=== PATIENT | female | born 1995 | race Caucasian/White ===

== ENCOUNTER 2022-02-17 16:31 | Inpatient (IN) | payer OTHER ==
--- NOTE | 2022-02-17 17:47 | ED ---
General Adult HPI - General Chief complaint: Psychiatric Symptoms Stated complaint: Medication complications Time Seen by Provider: 02/17/22 17:16 Source: patient, family Mode of arrival: ambulatory Limitations: no limitations - History of Present Illness Initial comments: Dictation was produced using [employer] dictation software. please excuse any gr ammatical, word or spelling errors. Chief Complaint: 26-year-old female presents with paranoia and auditory hallucinations History of Present Illness: 26-year-old female she presents with her father. Patient recently had medication changes yesterday. She was switched from Risperdal to Zyprexa. She is also placed on a letter goes by her psychiatrist. Patient's history of recent psychotic episode requiring psychiatric care in the past. Today patient had increasing auditory hallucinations. She states that the voices are telling her negative things. Patient also feeling dizzy. This also having some suicidal thoughts. She believes that this is from the medication changes. Denies any pain. No nausea vomiting. The ROS documented in this emergency department record has been reviewed and confirmed by me. Those systems with pertinent positive or negative responses have been documented in the HPI. All other systems are other negative and/or noncontributory. PHYSICAL EXAM: General Impression: Alert and oriented x3, not in acute distress HEENT: Normocephalic atraumatic, extra-ocular movements intact, pupils equal and reactive to light bilaterally, mucous membranes moist. Cardiovascular: Heart regular rate and rhythm Chest: Able to complete full sentences, no retractions, no tachypnea Abdomen: abdomen soft, non-tender, non-distended, no organomegaly Musculoskeletal: Pulses present and equal in all extremities, no peripheral edema Motor: no focal deficits noted Neurological: CN II-XII grossly intact, no focal motor or sensory deficits noted Skin: Intact with no visualized rashes Psych: Tearful ED course: 26-year-old female presents emergency department for psychotic symptoms. She also has accompanying dizziness. All signs upon arrival are within acceptable limits. Patient no acute distress. Patient reports a history of hyponatremia, hypokalemia and hypomagnesemia. She does take potassium and magnesium supplementation. Patient also has Soma 122. She states that whenever she eats nervous which is very often she drinks a lot of water. Patient also has a component of psychogenic polydipsia which may be driving her hyponatremia. The last she is started on IV fluids. Patient be admitted for electrolytes arrangement. Psychiatry was consulted for management of psychotic symptoms. EKG interpretation: Ventricular rate 70, sinus rhythm, DE interval 137, care is 87, QTC 422. No DE prolongation, no QTC prolongation, no ST or T-wave changes noted. Overall, this EKG is unremarkable - Related Data Home Medications Medication Instructions Recorded Confirmed Nortrel 7-7-7 1 tab PO DAILY 01/10/22 02/17/22 diphenhydrAMINE [Benadryl] 25 mg PO DAILY PRN 01/10/22 02/17/22 Cholecalciferol [Vitamin D3 (25 25 mcg PO DAILY 02/17/22 02/17/22 Mcg = 1000 Iu)] LORazepam [Ativan] 0.5 mg PO BID PRN 02/17/22 02/17/22 Magnesium Citrate 250 mg PO HS 02/17/22 02/17/22 Magnesium Ox 125mg 125 mg PO HS 02/17/22 02/17/22 OLANZapine [ZyPREXA] See Taper PO HS 02/17/22 02/17/22 Pyridoxine [Vitamin B-6] 50 mg PO DAILY 02/17/22 02/17/22 Qunol 1 tab PO HS 02/17/22 02/17/22 risperiDONE [RisperDAL] 1 mg PO DAILY 02/17/22 02/17/22 Previous Rx's Medication Instructions Recorded Escitalopram [Lexapro] 20 mg PO DAILY 30 Days tab 01/13/22 Allergies Allergy/AdvReac Type Severity Reaction Status Date / Time No Known Allergies Allergy Verified 02/17/22 18:26 Review of Systems ROS Statement: Those systems with pertinent positive or pertinent negative responses have been documented in the HPI. ROS Other: All systems not noted in ROS Statement are negative. Past Medical History Past Medical History: No Reported History History of Any Multi-Drug Resistant Organisms: None Reported Past Surgical History: No Surgical Hx Reported Past Psychological History: Anxiety, Depression, Schizophrenia Smoking Status: Never smoker Past Alcohol Use History: None Reported Past Drug Use History: None Reported General Exam Limitations: no limitations Course Vital Signs 02/17/22 16:46 Temperature 97.9 F Pulse Rate 83 Respiratory 16 Rate Blood Pressure 138/91 O2 Sat by Pulse 99 Oximetry Medical Decision Making - Lab Data Result diagrams: 02/17/22 18:03 02/17/22 18:03 Lab Results 02/17/22 02/17/22 02/17/22 Range/Units 17:53 17:53 18:03 WBC (3.8-10.6) k/uL RBC (3.80-5.40) m/uL Hgb (11.4-16.0) gm/dL Hct (34.0-46.0) % MCV (80.0-100.0) fL MCH (25.0-35.0) pg MCHC (31.0-37.0) g/dL RDW (11.5-15.5) % Plt Count (150-450) k/uL MPV Neutrophils % % Lymphocytes % % Monocytes % % Eosinophils % % Basophils % % Neutrophils # (1.3-7.7) k/uL Lymphocytes # (1.0-4.8) k/uL Monocytes # (0-1.0) k/uL Eosinophils # (0-0.7) k/uL Basophils # (0-0.2) k/uL Sodium 122 L (137-145) mmol/L Potassium 3.1 L (3.5-5.1) mmol/L Chloride 89 L (98-107) mmol/L Carbon Dioxide 26 (22-30) mmol/L Anion Gap 7 mmol/L BUN 13 (7-17) mg/dL Creatinine 0.68 (0.52-1.04) mg/dL Est GFR (CKD-EPI)AfAm >90 (>60 ml/min/1.73 sqM) Est GFR (CKD-EPI)NonAf >90 (>60 ml/min/1.73 sqM) Glucose 91 (74-99) mg/dL Calcium 8.4 (8.4-10.2) mg/dL Magnesium 1.3 L (1.6-2.3) mg/dL Urine HCG, Qual Not Detected (Not Detectd) Urine Opiates Screen Not Detected (NotDetected) Ur Oxycodone Screen Not Detected (NotDetected) Urine Methadone Screen Not Detected (NotDetected) Ur Propoxyphene Screen Not Detected (NotDetected) Ur Barbiturates Screen Not Detected (NotDetected) U Tricyclic Antidepress Not Detected (NotDetected) Ur Phencyclidine Scrn Not Detected (NotDetected) Ur Amphetamines Screen Not Detected (NotDetected) U Methamphetamines Scrn Not Detected (NotDetected) U Benzodiazepines Scrn Detected H (NotDetected) Urine Cocaine Screen Not Detected (NotDetected) U Marijuana (THC) Screen Not Detected (NotDetected) 02/17/22 Range/Units 18:03 WBC 7.5 (3.8-10.6) k/uL RBC 4.08 (3.80-5.40) m/uL Hgb 12.9 (11.4-16.0) gm/dL Hct 38.0 (34.0-46.0) % MCV 93.1 D (80.0-100.0) fL MCH 31.6 (25.0-35.0) pg MCHC 34.0 (31.0-37.0) g/dL RDW 12.6 (11.5-15.5) % Plt Count 170 (150-450) k/uL MPV 7.3 Neutrophils % 63 % Lymphocytes % 28 % Monocytes % 7 % Eosinophils % 0 % Basophils % 0 % Neutrophils # 4.7 (1.3-7.7) k/uL Lymphocytes # 2.1 (1.0-4.8) k/uL Monocytes # 0.6 (0-1.0) k/uL Eosinophils # 0.0 (0-0.7) k/uL Basophils # 0.0 (0-0.2) k/uL Sodium (137-145) mmol/L Potassium (3.5-5.1) mmol/L Chloride (98-107) mmol/L Carbon Dioxide (22-30) mmol/L Anion Gap mmol/L BUN (7-17) mg/dL Creatinine (0.52-1.04) mg/dL Est GFR (CKD-EPI)AfAm (>60 ml/min/1.73 sqM) Est GFR (CKD-EPI)NonAf (>60 ml/min/1.73 sqM) Glucose (74-99) mg/dL Calcium (8.4-10.2) mg/dL Magnesium (1.6-2.3) mg/dL Urine HCG, Qual (Not Detectd) Urine Opiates Screen (NotDetected) Ur Oxycodone Screen (NotDetected) Urine Methadone Screen (NotDetected) Ur Propoxyphene Screen (NotDetected) Ur Barbiturates Screen (NotDetected) U Tricyclic Antidepress (NotDetected) Ur Phencyclidine Scrn (NotDetected) Ur Amphetamines Screen (NotDetected) U Methamphetamines Scrn (NotDetected) U Benzodiazepines Scrn (NotDetected) Urine Cocaine Screen (NotDetected) U Marijuana (THC) Screen (NotDetected) Disposition Clinical Impression: Hyponatremia, Hypomagnesemia Disposition: ADMITTED IP TO THIS [facility] Condition: Serious Referrals: Ruben George MD [Primary Care Provider] - 1-2 days
[2022-02-17 18:16] LABS: Basophils % (A) 0 %; Eosinophils % (A) 0 %; HGB 12.9 gm/dL (11.4-16.0); Lymphocytes # (A) 2.1 k/uL (1.0-4.8); Lymphocytes % (A) 28 %; MCH 31.6 pg (25.0-35.0); Mean Platelet Volume 7.3; Monocytes # (A) 0.6 k/uL (0-1.0); Monocytes % (A) 7 %; Neutrophils # (A) 4.7 k/uL (1.3-7.7); Neutrophils % (A) 63 %; Platelet Count 170 k/uL (150-450); RBC 4.08 m/uL (3.80-5.40); RDW 12.6 % (11.5-15.5); WBC 7.5 k/uL (3.8-10.6)
[2022-02-17 18:28] LABS: MCV 93.1 fL (80.0-100.0)
[2022-02-17 18:46] LABS: African American GFR (CKD) >90 (>60 ml/min/1.73 sqM); Anion Gap 7 mmol/L; Blood Urea Nitrogen 13 mg/dL (7-17); Calcium 8.4 mg/dL (8.4-10.2); Carbon Dioxide 26 mmol/L (22-30); Chloride 89 mmol/L (98-107); Glucose 91 mg/dL (74-99); Magnesium 1.3 mg/dL (1.6-2.3); Non-African American GFR(CKD) >90 (>60 ml/min/1.73 sqM); Potassium 3.1 mmol/L (3.5-5.1); Sodium 122 mmol/L (137-145)
[2022-02-17 19:17] LABS: Benzodiazepines Screen,Urine Detected (NotDetected)
[2022-02-17 19:18] LABS: Amphetamine Screen,Urine Not Detected (NotDetected); Barbiturate Screen,Urine Not Detected (NotDetected); Cocaine Screen,Urine Not Detected (NotDetected); Methadone Screen, Urine Not Detected (NotDetected); Opiate Screen,Urine Not Detected (NotDetected); Oxycodone Screen, Urine Not Detected (NotDetected); Phencyclidine Screen,Urine Not Detected (NotDetected); Tricyclic Antidepressant,Urine Not Detected (NotDetected); Urn Cannabinoid Scrn Not Detected (NotDetected)
[2022-02-17] MEDS ORDERED: SODIUM CHLORIDE 0.9% 1,000 ML IV STA (19:28)
[2022-02-17] MEDS ORDERED: POTASSIUM CHLORIDE ER 20 MEQ TAB.ER PO STA (19:28)
[2022-02-17] MEDS ORDERED: NALOXONE 0.4 MG/ML 1 ML VIAL IV PRN (19:31)
[2022-02-17] MEDS ORDERED: SODIUM CHLORIDE 0.9% 1,000 ML IV SCH ×2 (19:45→20:30)
[2022-02-17] MEDS: MAGNESIUM SULFATE-D5W PMX 1 GM in DEXTROSE/WATER 1 100ML.BAG IVPB SCH ×2 (19:51→20:40)
[2022-02-18] MEDS ORDERED: OLANZapine 5 MG TAB PO STA (00:47)
[2022-02-18] MEDS: MELATONIN 5 MG TABLET PO SCH ×2 (00:56→19:58)
[2022-02-18 01:23] LABS: African American GFR (CKD) >90 (>60 ml/min/1.73 sqM); Anion Gap 7 mmol/L; Blood Urea Nitrogen 11 mg/dL (7-17); Calcium 8.5 mg/dL (8.4-10.2); Carbon Dioxide 25 mmol/L (22-30); Chloride 106 mmol/L (98-107); Glucose 79 mg/dL (74-99); Non-African American GFR(CKD) >90 (>60 ml/min/1.73 sqM); Potassium 3.9 mmol/L (3.5-5.1); Sodium 138 mmol/L (137-145)
--- NOTE | 2022-02-18 02:14 | HP ---
HISTORY AND PHYSICAL This 26-year-old female came to the emergency room with shaking, jerking motions worsening over today with worsening hearing and auditory hallucinations and some altered mental status. She was found to have severe low potassium, magnesium and sodium. She drinks large amounts of water all day long and she is on treatment with psychiatric medications for psychosis. When she left the hospital out of [facility] last time she was doing well with hearing voices. Since that time her medicine has been gradually increased and it has not worked. 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 She was discharged from [facility] last time and she to the medicines not working. Since she has been in the ER we have replaced potassium and magnesium and she feels much better, hearing less voices, as the potassium and magnesium have been fixed. Maybe she has been doing this since her last discharge from [facility]. Drinking large amounts of water, and that is why the medicine is not working. She has improved with her auditory hallucinations just since she has been in the ER with potassium and magnesium being replaced. Wait for psychiatric recommendations. Fluid restriction to 1000 to 1200 mL a day at and wait for psychiatric recommendations. Dr. Shetty also saw her home medications. She has been on Risperdal, which was just decreased from 2 mg twice a day to 1 mg daily. Zyprexa was just ordered 5 mg a day by Outpatient Psychiatry. Family says that is causing her voices to be much worse. She apparently also takes Ativan 0.5 b.i.d. p.r.n., Lexapro 20 daily. PAST MEDICAL HISTORY: See admission into psychiatric [facility] about a month ago. She sees outpatient psychiatrist at [facility]. SOCIAL HISTORY: No alcohol or drugs or full vaping or anything. Surgery is nothing. Family history: Possibly some bipolar in her family. Fourteen-point review of systems otherwise negative, as mentioned above. She is doing much better with her auditory hallucinations, her jerking and her confusion; all improved since she has been in the emergency room and electrolytes have been replaced. Labs were reviewed. Drug screen reviewed. Temperature 97.9, pulse 83, respiratory rate 16, blood pressure 138/91, 99% on room air. Cardiovascular S1, S2. Lungs clear. Psych: She is giving appropriate answers. Alert and oriented x3. Neurologic: Minimal tremor. GI: Soft. ASSESSMENT: 1. Suicidal ideation was not reported to me. ER doctor said she was. The nurse in the ER said she is not. Her dad is staying with her overnight in the room until Psych sees her. She may need another stay in the [facility] for adjustment of medicines. 2. 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 Has a lot to do with her hallucinations being bad and worsening at home, not responding to medicine. She is greatly improved with these same symptoms as potassium and magnesium have been replaced in the ER. 3. Patient demonstrated water at home. She probably be okay with less psychiatric medicine, as long as she has fluid restriction and a healthy diet. Wait for psychiatric recommendations from Dr. Shetty. IKER / BRAYAN: [id number] /
[2022-02-18 04:16] LABS: Basophils % (A) 1 %; Eosinophils # (A) 0.1 k/uL (0-0.7); Eosinophils % (A) 1 %; HCT 38.7 % (34.0-46.0); HGB 12.3 gm/dL (11.4-16.0); Lymphocytes # (A) 2.6 k/uL (1.0-4.8); Lymphocytes % (A) 38 %; MCH 30.3 pg (25.0-35.0); MCHC 31.9 g/dL (31.0-37.0); Mean Platelet Volume 7.4; Monocytes # (A) 0.6 k/uL (0-1.0); Monocytes % (A) 9 %; Neutrophils # (A) 3.3 k/uL (1.3-7.7); Neutrophils % (A) 49 %; Platelet Count 190 k/uL (150-450); RBC 4.07 m/uL (3.80-5.40); RDW 12.3 % (11.5-15.5); WBC 6.7 k/uL (3.8-10.6)
[2022-02-18 04:34] LABS: ALT 20 U/L (4-34); AST 36 U/L (14-36); African American GFR (CKD) >90 (>60 ml/min/1.73 sqM); Albumin 4.2 g/dL (3.5-5.0); Alkaline Phosphatase 23 U/L (38-126); Anion Gap 6 mmol/L; Blood Urea Nitrogen 11 mg/dL (7-17); Calcium 8.8 mg/dL (8.4-10.2); Carbon Dioxide 26 mmol/L (22-30); Chloride 108 mmol/L (98-107); Glucose 88 mg/dL (74-99); Non-African American GFR(CKD) >90 (>60 ml/min/1.73 sqM); Potassium 4.3 mmol/L (3.5-5.1); Sodium 140 mmol/L (137-145); Total Bilirubin 0.3 mg/dL (0.2-1.3); Total Protein 6.8 g/dL (6.3-8.2)
[2022-02-18] MEDS: DEXTROSE 5% IN WATER 1,000 ML IV SCH ×2 (08:07→13:59)
[2022-02-18] MEDS ORDERED: diphenhydrAMINE 25 MG CAP PO PRN (09:09)
[2022-02-18] MEDS ORDERED: risperiDONE 1 MG TAB PO SCH ×2 (09:15→21:00)
[2022-02-18] MEDS: ESCITALOPRAM 20 MG TAB PO SCH (09:35)
[2022-02-18] MEDS: CHOLECALCIFEROL 25 MCG (1000 IU) TABLET PO SCH (09:35)
[2022-02-18] MEDS: LORazepam 0.5 MG TAB PO PRN ×3 (09:35→20:01)
[2022-02-18] MEDS: PYRIDOXINE 50 MG TAB PO SCH (10:03)
--- NOTE | 2022-02-18 11:00 | P.NPCON ---
History of Present Illness - Reason for Consult hyponatremia - History of Present Illness Reason for consultation: Hyponatremia History of present illness: Patient is a 26-year-old female seen in consultation for hyponatremia. Patient presented to the hospital due to concern for psychotic flare. Patient is not sure why she is here but father present at bedside provides the history. According to the father patient was maintained on Risperdal but was not tolerating the drug well. She has been following with psychiatry and was subsequently started on Zyprexa and Risperdal was gradually being decreased. Patient was more confused and hallucinating and was brought to the hospital. The father states patient has been drinking excessive amount of fluids. He states she's been drinking gallons of fluids daily. Oral intake has been fair. No vomiting or diarrhea. No chest pain or shortness of breath. No history of cancer. Patient's sodium level was 122 1 admission and she received a 1 L bolus of normal saline. She was then started on maintenance normal saline but the fluids were discontinued last night as his sodium normalized. I was not notified of these results. This morning her sodium was 140 and I started her on D5W at 150 mL an hour which she's currently receiving. Repeat sodium level is pending. Vital signs are stable. General: Awake and alert. No acute distress. HEENT: Head exam is unremarkable. LUNGS: Breath sounds decreased. HEART: Rate and Rhythm are regular. ABDOMEN: Soft, no distention. EXTREMITITES: No edema. Past Medical History Past Medical History: No Reported History History of Any Multi-Drug Resistant Organisms: None Reported Past Surgical History: No Surgical Hx Reported Past Psychological History: Anxiety, Depression Smoking Status: Unknown if ever smoked Past Alcohol Use History: None Reported Past Drug Use History: None Reported Medications and Allergies Home Medications Medication Instructions Recorded Confirmed Type Nortrel 7-7-7 1 tab PO DAILY 01/10/22 02/17/22 History diphenhydrAMINE [Benadryl] 25 mg PO DAILY PRN 01/10/22 02/17/22 History Escitalopram [Lexapro] 20 mg PO DAILY 30 Days tab 01/13/22 02/17/22 Rx Cholecalciferol [Vitamin D3 (25 25 mcg PO DAILY 02/17/22 02/17/22 History Mcg = 1000 Iu)] LORazepam [Ativan] 0.5 mg PO BID PRN 02/17/22 02/17/22 History Magnesium Citrate 250 mg PO HS 02/17/22 02/17/22 History Magnesium Ox 125mg 125 mg PO HS 02/17/22 02/17/22 History OLANZapine [ZyPREXA] See Taper PO HS 02/17/22 02/17/22 History Pyridoxine [Vitamin B-6] 50 mg PO DAILY 02/17/22 02/17/22 History Qunol 1 tab PO HS 02/17/22 02/17/22 History risperiDONE [RisperDAL] 1 mg PO DAILY 02/17/22 02/17/22 History Allergies Allergy/AdvReac Type Severity Reaction Status Date / Time No Known Allergies Allergy Verified 02/17/22 18:26 Physical Exam Vitals: Vital Signs Temp Pulse Pulse Resp BP BP Pulse Ox 02/18/22 10:38 97.6 F 66 14 123/74 100 02/18/22 10:26 77 18 113/75 100 02/18/22 08:02 67 18 98/64 99 02/18/22 00:05 80 16 111/70 100 02/17/22 16:46 97.9 F 83 16 138/91 99 Intake and Output 02/17/22 02/18/22 02/18/22 22:59 06:59 14:59 Other: Weight 61.689 kg Results - Lab Results Most recent lab results Calcium 8.8 mg/dL (8.4-10.2) 02/18/22 03:45 Magnesium 1.3 mg/dL (1.6-2.3) L 02/17/22 18:03 02/18/22 03:45 02/18/22 03:45 Assessment and Plan Plan: Assessment: 1. Hyponatremia secondary to psychogenic polydipsia. Sodium level normalized with 1 L of normal saline and when fluid intake was limited. Urine osmolality noted to be low at 69. TSH normal. 2. Hypokalemia from poor intake and hypomagnesemia. Replace. Improved. 3. Hypomagnesemia from poor intake. Replaced. Plan: Maintain D5W for now. Repeat sodium level pending. I advised patient to follow regular diet and to avoid excessive fluid intake in future. If sodium level not trending down, I will give her a dose of DDAVP. Thank you for the consultation. I will continue to follow the patient with you during her hospital stay.
[2022-02-18] MEDS ORDERED: DESMOPRESSIN ACETATE 4 MCG/ML VIAL (MDV) IV STA (12:31)
--- NOTE | 2022-02-18 13:27 | P.CN ---
Psychiatric Consult - . Consult date: 02/18/22 Consult:: 02/18/22 13:26 IDENTIFYING DATA: This patient is a single, unemployed, 26-year-old female with significant history of schizophreniform disorder who presents to the hospital for increased auditory hallucinations, dizziness, and change in mentation. HISTORY OF PRESENT ILLNESS: The patient presented to the hospital on 02/17/2022, brought into the emergency department by her father for worsening psychotic s ymptoms, dizziness, and change in mentation. As per emergency Department evaluation, the patient was recently changed from Risperdal to Zyprexa for management of her psychosis. She was also found to have significant hyponatremia with a sodium of 122 on admission. She did report that she has been drinking an excessive amount of water. Psychiatry has been consulted for evaluation and management of the patient's psychotic symptoms. Upon evaluation on the hospital floor, the patient's sodium is now corrected and is now 138. Currently, the patient continues to report that she is experiencing auditory hallucinations however states that they're much more manageable and that they are decreased in severity compared to when she was first brought into this hospital as well as compared to her last admission on our psychiatric unit. She is currently denying any suicidal or homicidal ideation, intention, and/or plan. She is not reporting any visual hallucinations. She denies any paranoia or other delusions at this time. The patient expresses that she has been increasingly stressed after learning that her parents are currently in a legal burrell with their mortgage company and there is concerns that they may lose their home. Otherwise, the patient is not reporting any other significant stressors. She reports no issues regarding her sleep or appetite. She is denying any significant depressive symptoms or symptoms of bipolar disorder. The patient was last admitted onto our psychiatric unit from 01/10/22 to 01/13/22. She was discharged in a regimen of Risperdal and Lexapro. PAST MEDICAL HISTORY: Past Medical History: No Reported History History of Any Multi-Drug Resistant Organisms: None Reported Past Surgical History: No Surgical Hx Reported Past Psychological History: Anxiety, Depression Smoking Status: Unknown if ever smoked Past Alcohol Use History: None Reported Past Drug Use History: None Reported ALLERGIES: NO KNOWN DRUG ALLERGIES CHEMICAL DEPENDENCY HISTORY: Patient denies any tobacco, marijuana, or illicit drug use. She denies any recent alcohol use. FAMILY PSYCHIATRIC/SUBSTANCE USE HISTORY: No reported family psychiatric history. SOCIAL HISTORY: Patient is single, has no children, and is currently living with her mother and father. She graduated from [employer] and has a bachelor's degree. She was recently employed in until the end of this past November. MENTAL STATUS EXAM: General Appearance: Patient appears to be stated age is alert, pleasant, and cooperative. Patient appears to have fair hygiene and grooming wearing hospital gown with fair eye contact. Behavior: Patient is calmly seated upright in bed without any agitated behavior. Speech: Patient's speech is fluent and nonpressured. Mood/Affect: Patient reports their mood is "feeling better", affect is congruent and euthymic Suicidality/Homicidality: Patient denies having any suicidal or homicidal ideation intent or plan. Perceptions: Patient denies any visual hallucinations and denies any auditory hallucinations Though content/process: There is no evidence of any delusional thought content and thought process is linear and goal-directed. Memory and concentration: AOX3, grossly intact for the purposes of this session. Can spell "WORLD" backwards Judgment and insight:. Good Laboratory Results WBC 6.7 k/uL (3.8-10.6) 02/18/22 03:45 RBC 4.07 m/uL (3.80-5.40) 02/18/22 03:45 Hgb 12.3 gm/dL (11.4-16.0) 02/18/22 03:45 Hct 38.7 % (34.0-46.0) 02/18/22 03:45 MCV 95.0 fL (80.0-100.0) 02/18/22 03:45 MCH 30.3 pg (25.0-35.0) 02/18/22 03:45 MCHC 31.9 g/dL (31.0-37.0) 02/18/22 03:45 RDW 12.3 % (11.5-15.5) 02/18/22 03:45 Plt Count 190 k/uL (150-450) 02/18/22 03:45 MPV 7.4 02/18/22 03:45 Neutrophils % 49 % 02/18/22 03:45 Lymphocytes % 38 % 02/18/22 03:45 Monocytes % 9 % 02/18/22 03:45 Eosinophils % 1 % 02/18/22 03:45 Basophils % 1 % 02/18/22 03:45 Neutrophils # 3.3 k/uL (1.3-7.7) 02/18/22 03:45 Lymphocytes # 2.6 k/uL (1.0-4.8) 02/18/22 03:45 Monocytes # 0.6 k/uL (0-1.0) 02/18/22 03:45 Eosinophils # 0.1 k/uL (0-0.7) 02/18/22 03:45 Basophils # 0.0 k/uL (0-0.2) 02/18/22 03:45 Sodium 138 mmol/L (137-145) 02/18/22 10:38 Potassium 4.3 mmol/L (3.5-5.1) 02/18/22 03:45 Chloride 108 mmol/L (98-107) H 02/18/22 03:45 Carbon Dioxide 26 mmol/L (22-30) 02/18/22 03:45 Anion Gap 6 mmol/L 02/18/22 03:45 BUN 11 mg/dL (7-17) 02/18/22 03:45 Creatinine 0.65 mg/dL (0.52-1.04) 02/18/22 03:45 Est GFR (CKD-EPI)AfAm >90 (>60 ml/min/1.73 sqM) 02/18/22 03:45 Est GFR (CKD-EPI)NonAf >90 (>60 ml/min/1.73 sqM) 02/18/22 03:45 Glucose 88 mg/dL (74-99) 02/18/22 03:45 Osmolality 286 mosm/kg (280-301) 02/17/22 23:45 Calcium 8.8 mg/dL (8.4-10.2) 02/18/22 03:45 Magnesium 1.3 mg/dL (1.6-2.3) L 02/17/22 18:03 Total Bilirubin 0.3 mg/dL (0.2-1.3) 02/18/22 03:45 AST 36 U/L (14-36) 02/18/22 03:45 ALT 20 U/L (4-34) 02/18/22 03:45 Alkaline Phosphatase 23 U/L (38-126) L 02/18/22 03:45 Total Protein 6.8 g/dL (6.3-8.2) 02/18/22 03:45 Albumin 4.2 g/dL (3.5-5.0) 02/18/22 03:45 TSH 3.180 mIU/L (0.465-4.680) 02/18/22 03:45 Urine Osmolality 69 mosm/kg (50-1400) 02/17/22 17:23 Urine HCG, Qual Not Detected (Not Detectd) 02/17/22 17:53 Urine Opiates Screen Not Detected (NotDetected) 02/17/22 17:53 Ur Oxycodone Screen Not Detected (NotDetected) 02/17/22 17:53 Urine Methadone Screen Not Detected (NotDetected) 02/17/22 17:53 Ur Propoxyphene Screen Not Detected (NotDetected) 02/17/22 17:53 Ur Barbiturates Screen Not Detected (NotDetected) 02/17/22 17:53 U Tricyclic Antidepress Not Detected (NotDetected) 02/17/22 17:53 Ur Phencyclidine Scrn Not Detected (NotDetected) 02/17/22 17:53 Ur Amphetamines Screen Not Detected (NotDetected) 02/17/22 17:53 U Methamphetamines Scrn Not Detected (NotDetected) 02/17/22 17:53 U Benzodiazepines Scrn Detected (NotDetected) H 02/17/22 17:53 Urine Cocaine Screen Not Detected (NotDetected) 02/17/22 17:53 U Marijuana (THC) Screen Not Detected (NotDetected) 02/17/22 17:53 Vital Signs Temp 97.6 F 02/18/22 10:38 Pulse 66 02/18/22 10:38 Resp 14 02/18/22 10:38 BP 123/74 02/18/22 10:38 Pulse Ox 100 02/18/22 10:38 Intake & Output 02/17/22 02/18/22 02/18/22 18:59 06:59 18:59 Intake Total 150 Output Total 800 Balance -650 Weight 61.689 kg 61.689 kg Intake: IV 150 Dextrose 5% in Water 1, 150 000 ml @ 150 mls/hr IV . 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 Currently, the patient is now alert and oriented and not reporting any suicidal or homicidal ideation, intention, and/or plan. She does not present with imminent risk of harm to self or others and is not overtly psychotic. Although she continues to endorse auditory hallucinations, her symptoms appear to be well-controlled. -Patient counseled on psychogenic polydipsia. No medication management is required for this at this time. -Delirium precautions recommended with patient including - avoiding use of narcotics and USED [employer] sedatives, limit anticholinergic medications when possible, frequent re-orientation, minimize use of restraints, open window shades during the day and close them at night -Would recommend the following medication changes/additions: We'll place the patient back on Risperdal and continue the medication at 1 mg by mouth twice a day for management of psychosis. Continue to hold Zyprexa this time. Continue Lexapro 20 mg by mouth daily for depression/anxiety -Discontinue one-to-one sitter -Recommend outpatient psychiatry follow-up. Patient is currently open with [facility]. -Psychiatry will sign off at this point, please contact with any questions. 02/18/22 13:26
[2022-02-18] MEDS ORDERED: LORazepam 0.5 MG TAB PO SCH (16:00)
[2022-02-18] MEDS ORDERED: OLANZapine 5 MG TAB PO SCH (18:00)
--- NOTE | 2022-02-18 18:31 | P.PN ---
Progress Note - Text Progress Note Date: 02/18/22 Hospital course: I'm rounding for Dr. Ruben George. Patient is a 26-year-old female . Patient presented to the hospital due to concern for psychotic flare. Patient is not sure why she is here but father present at bedside provides the history. According to the father patient was maintained on Risperdal but was not tolerating the drug well. She has been following with psychiatry and was subsequently started on Zyprexa and Risperdal was gradually being decreased. Patient was more confused and hallucinating and was brought to the hospital. The father states patient has been drinking excessive amount of fluids. He states she's been drinking gallons of fluids daily. Oral intake has been fair. No vomiting or diarrhea. No chest pain or shortness of breath. No history of cancer. Patient's sodium level was 122 1 admission and she received a 1 L bolus of normal saline. She was then started on maintenance normal saline but the fluids were discontinued last night as his sodium normalized. I was not notified of these results. February 18: Patient sitting up in bed. Comfortable. Did tolerate her breakfast. Did walk to the bathroom. The patient walk in the hallway. Sodium is better. On D5W. Per nephrology. Active Medications Cholecalciferol (Cholecalciferol 25 Mcg (1000 Iu) Tablet) 25 mcg PO DAILY [facility] Last Admin: 02/18/22 09:35 Dose: 25 mcg Documented by: Diphenhydramine HCl (Diphenhydramine 25 Mg Cap) 25 mg PO DAILY PRN PRN Reason: requested Escitalopram Oxalate (Escitalopram 20 Mg Tab) 20 mg PO DAILY [facility] Last Admin: 02/18/22 09:35 Dose: 20 mg Documented by: Dextrose/Water (Dextrose 5%-Water Iv Soln) 1,000 mls @ 150 mls/hr IV .Q6H40M [facility] Last Admin: 02/18/22 13:59 Dose: 80 mls/hr Documented by: Lorazepam (Lorazepam 0.5 Mg Tab) 0.5 mg PO TID PRN PRN Reason: Anxiety Melatonin (Melatonin 5 Mg Tablet) 5 mg PO HS [facility] Last Admin: 02/18/22 00:56 Dose: 5 mg Documented by: Naloxone HCl (Naloxone 0.4 Mg/Ml 1 Ml Vial) 0.2 mg IV Q2M PRN PRN Reason: Opioid Reversal Olanzapine (Olanzapine 5 Mg Tab) 5 mg PO DAILY [facility] Pyridoxine HCl (Pyridoxine 50 Mg Tab) 50 mg PO DAILY [facility] Last Admin: 02/18/22 10:03 Dose: 50 mg Documented by: Risperidone (Risperidone 1 Mg Tab) 1 mg PO DAILY [facility] On examination: VITAL SIGNS: [97.6, 66, 14, 123/74, 100% room air,] GENERAL APPEARANCE: Sitting up in bed, awake, comfortable HEENT: Normal external appearance of nose and ear. Oral cavity normal EYES: Pupils equal. Conjunctiva normal. NECK: JVD not raised. Mass not palpable. RESPIRATORY: Respiratory effort normal. Lungs clear to auscultation. CARDIOVASCULAR: First and second sounds normal. No edema. ABDOMEN: Soft. Liver and spleen not palpable. No tenderness. No mass palpable. PSYCHIATRY: Alert and oriented x3. Mood and affect normal. INVESTIGATIONS, reviewed in the clinical context: White count 6.7 hemoglobin 12.3 platelets 190 sodium 138 potassium 4.3 creatinine 0.65 Admission labs: Sodium 122 Assessment and plan: - Hyponatremia secondary to psychogenic polydipsia. Sodium improved with 1 IV normal saline and when fluid intake was limited. Urine osmolality noted to be low at 69. TSH normal. - Hypokalemia Replace - Hypomagnesemia Replaced. -Psychogenic polydipsia Patient counseled. Follow with psychiatry -Schizophrenic form disorder/major depressive disorder Risperdal to continue per psychiatry. Zyprexa held. Continue Lexapro. Sitter discontinued. Discussed with the patient and sitter this morning. Ambulate in the hallway. Psychiatry consultation noted. Getting D5W. Repeat labs in the morning. Hopefully home tomorrow.
[2022-02-19] MEDS: LORazepam 0.5 MG TAB PO PRN (05:59)
[2022-02-19] MEDS ORDERED: risperiDONE 1 MG TAB PO SCH (06:00)
[2022-02-19] MEDS: PYRIDOXINE 50 MG TAB PO SCH (09:15)
[2022-02-19] MEDS: CHOLECALCIFEROL 25 MCG (1000 IU) TABLET PO SCH (09:15)
[2022-02-19] MEDS: ESCITALOPRAM 20 MG TAB PO SCH (09:15)
[2022-02-19 09:20] VITALS: BP 90/57; RESP 18; TEMP 97.5
[2022-02-19 09:22] VITALS: PULSE 67
[2022-02-19 09:35] LABS: African American GFR (CKD) >90 (>60 ml/min/1.73 sqM); Anion Gap 8 mmol/L; Blood Urea Nitrogen 10 mg/dL (7-17); Carbon Dioxide 28 mmol/L (22-30); Chloride 104 mmol/L (98-107); Glucose 103 mg/dL (74-99); Magnesium 1.7 mg/dL (1.6-2.3); Non-African American GFR(CKD) >90 (>60 ml/min/1.73 sqM); Potassium 4.2 mmol/L (3.5-5.1); Sodium 140 mmol/L (137-145)
--- NOTE | 2022-02-19 10:32 | P.PN ---
Subjective Progress Note Date: 02/19/22 Principal diagnosis: This is a 26-year-old female seen in consultation because of hyponatremia secondary to polydipsia. She was treated with IV fluids and recovered. She is completely recovered has no symptoms eating well. Her sodium is 140 this morning Objective - Vital Signs Vital signs: Vital Signs Temp 97.5 F L 02/19/22 09:00 Pulse 67 02/19/22 09:00 Resp 18 02/19/22 09:00 BP 90/57 02/19/22 09:00 Pulse Ox 97 02/19/22 09:00 Intake & Output 02/18/22 02/19/22 02/19/22 18:59 06:59 18:59 Intake Total 1550 500 Output Total 1050 Balance 500 500 Intake: IV 550 Dextrose 5% in Water 1, 550 000 ml @ 150 mls/hr IV . Q6H40M [facility] Rx#:[id number] Oral 1000 500 Output: Urine 1050 Other: Voiding Method Toilet Toilet # Voids 2 On examination awake alert oriented comfortable cheerful HEENT exam no JVP neck is supple no facial asymmetry Lungs are clear to auscultation good air entry bilaterally Heart sounds unremarkable for any murmur rub gallop Abdomen soft nontender Extremity exam was no edema Neurologically awake alert oriented - Labs CBC & Chem 7: 02/18/22 03:45 02/19/22 08:34 Labs: Abnormal Lab Results - Last 24 Hours (Table) 02/17/22 02/18/22 02/19/22 Range/Units 17:23 20:26 08:34 Sodium 130 L (137-145) mmol/L Glucose 103 H (74-99) mg/dL Ur Random Sodium <20 L (40-220) mmol/L Assessment and Plan Assessment: Impression 1. Hyponatremia secondary to polydipsia, sodium was 122 on admission improved to 140 this morning. TSH is normal at 3.1 urine osmole to 69 urine sodium less than 20. Resolved Recommendation Patient can be discharged would recommend follow-up basic metabolic panel in about 3-4 days. I given her a prescription for the same. Patient's father was in the room
--- NOTE | 2022-02-19 13:05 | P.DS ---
Providers Date of admission: 02/17/22 19:31 Expected date of discharge: 02/19/22 Attending physician: Ruben George Consults: 02/17/22 19:32 Consult Physician Routine Consulting Provider: Jono Harkins Consult Reason/Comments: electrolyte derangement Do you want consulting provider notified?: Yes Consult Physician Routine Consulting Provider: River Arguello Consult Reason/Comments: acute psychosis Do you want consulting provider notified?: Yes Primary care physician: Ruben George Hospital Course: Hospital course: I'm rounding for Dr. Ruben George. Patient is a 26-year-old female . Patient presented to the hospital due to concern for psychotic flare. Patient is not sure why she is here but father present at bedside provides the history. According to the father patient was maintained on Risperdal but was not tolerating the drug well. She has been following with psychiatry and was subsequently started on Zyprexa and Risperdal was gradually being decreased. Patient was more confused and hallucinating and was brought to the hospital. The father states patient has been drinking excessive amount of fluids. He states she's been drinking gallons of fluids daily. Oral intake has been fair. No vomiting or diarrhea. No chest pain or shortness of breath. No history of cancer. Patient's sodium level was 122 1 admission and she received a 1 L bolus of normal saline. She was then started on maintenance normal saline but the fluids were discontinued last night as his sodium normalized. I was not notified of these results. February 18: Patient sitting up in bed. Comfortable. Did tolerate her breakfast. Did walk to the bathroom. The patient walk in the hallway. Sodium is better. On D5W. Per nephrology. February 19: Father the bedside. Patient feeling much better. Sodium corrected. Eating well. Has been up in the hallway. Discussed at length with the patient and the father the bedside lifestyle approach. Fluid intake discussed. Discharge medications per psychiatry on the current medications. Zyprexa has been cut back to 5 mg at 6 PM. Patient scheduled to follow-up with [facility]. Discussion and discharge planning more than 35 minutes On examination: VITAL SIGNS: 97.5, 67, 18, 90/57, 97% room air GENERAL APPEARANCE: awake, comfortable HEENT: Normal external appearance of nose and ear. Oral cavity normal EYES: Pupils equal. Conjunctiva normal. NECK: JVD not raised. Mass not palpable. RESPIRATORY: Respiratory effort normal. Lungs clear to auscultation. CARDIOVASCULAR: First and second sounds normal. No edema. ABDOMEN: Soft. Liver and spleen not palpable. No tenderness. No mass palpable. PSYCHIATRY: Alert and oriented x3. Mood and affect normal. INVESTIGATIONS, reviewed in the clinical context: February 19: Sodium 140 White count 6.7 hemoglobin 12.3 platelets 190 sodium 138 potassium 4.3 creatinine 0.65 Admission labs: Sodium 122 Assessment and plan: - Hyponatremia secondary to psychogenic polydipsia. Sodium improved with 1 IV normal saline and when fluid intake was limited. Urine osmolality noted to be low at 69. TSH normal. - Hypokalemia : Corrected Replace - Hypomagnesemia Replaced. -Psychogenic polydipsia Patient counseled. Follow with [facility] -Schizophrenic form disorder/major depressive disorder Risperdal 1 mg twice daily. Zyprexa 5 mg at 6 PM. Continue Lexapro. Disposition: Home with parents Plan - Discharge Summary Discharge Rx Participant: No New Discharge Prescriptions: New OLANZapine [ZyPREXA] 5 mg PO 1800 #30 tab Continue Nortrel 04-21-7 1 tab PO DAILY Escitalopram [Lexapro] 20 mg PO DAILY 30 Days tab Qunol 1 tab PO HS LORazepam [Ativan] 0.5 mg PO BID PRN PRN Reason: Anxiety Pyridoxine [Vitamin B-6] 50 mg PO DAILY Cholecalciferol [Vitamin D3 (25 Mcg = 1000 Iu)] 25 mcg PO DAILY Magnesium Ox 125mg 125 mg PO HS Changed risperiDONE [RisperDAL] 1 mg PO DAILY@0600 #0 Discontinued diphenhydrAMINE [Benadryl] 25 mg PO DAILY PRN PRN Reason: ALLERGIES Magnesium Citrate 250 mg PO HS OLANZapine [ZyPREXA] See Taper PO HS Discharge Medication List Nortrel 04-21-7 1 tab PO DAILY 01/10/22 [History] Escitalopram [Lexapro] 20 mg PO DAILY 30 Days tab 01/13/22 [Rx] Cholecalciferol [Vitamin D3 (25 Mcg = 1000 Iu)] 25 mcg PO DAILY 02/17/22 [History] LORazepam [Ativan] 0.5 mg PO BID PRN 02/17/22 [History] Magnesium Ox 125mg 125 mg PO HS 02/17/22 [History] Pyridoxine [Vitamin B-6] 50 mg PO DAILY 02/17/22 [History] Qunol 1 tab PO HS 02/17/22 [History] OLANZapine [ZyPREXA] 5 mg PO 1800 #30 tab 02/19/22 [Rx] risperiDONE [RisperDAL] 1 mg PO DAILY@0600 #0 02/19/22 [Rx] Follow up Appointment(s)/Referral(s): dr FANNY [Other] - 1 Week (Pt and father stated pt has an appointment on Monday with Dr. Felipe) Ruben George MD [Primary Care Provider] - 1-2 days (Pt will make own appointment) Patient Instructions/Handouts: Hyponatremia (GEN), Hypomagnesemia (GEN), Suicide Prevention (GEN)
== END 2022-02-19 13:18 | disposition home or self-care (01) | DRG 641 ==
LOC: EC 16:31 → 3SCARD 19:31
PROVIDERS: ADMIT Family Medicine; ATTEND Family Medicine
DX: E87.1 Hypo-osmolality and hyponatremia (principal); R45.851 Suicidal ideations; R44.0 Auditory hallucinations; E83.42 Hypomagnesemia; T43.595A Adverse effect of other antipsychotics and neuroleptics, initial encounter; F20.9 Schizophrenia, unspecified; E87.6 Hypokalemia; F32.9 Major depressive disorder, single episode, unspecified; F41.9 Anxiety disorder, unspecified; R63.1 Polydipsia; Z79.899 Other long term (current) drug therapy; Z28.310 Unvaccinated for COVID-19; Z81.8 Family history of other mental and behavioral disorders; Z71.89 Other specified counseling
CPT/HCPCS: 36415; 80048; 80053; 80306; 81025; 83735; 83930; 83935; 84295; 84300; 84443; 85025; 93005; 96361; 96365; 96366; 99285

== ENCOUNTER 2022-02-22 09:35 | Inpatient (IN) | payer OTHER ==
--- NOTE | 2022-02-22 10:25 | ED ---
General Adult HPI - General Chief complaint: Psychiatric Symptoms Stated complaint: Revisit Time Seen by Provider: 02/22/22 10:14 Source: patient, family, RN notes reviewed Mode of arrival: ambulatory Limitations: no limitations - History of Present Illness Initial comments: Patient is a pleasant 26-year-old female presenting with family with concerns f or hearing voices and suicidal thoughts. Symptoms have been present for several months. Symptoms are worse the past few days. Patient has been on Restoril. Patient started Zyprexa last night and slept well otherwise no improvement of symptoms. Patient hears voices. Patient states this is constantly becoming very frustrated. Patient is feeling paranoid. Patient does have suicidal thoughts without plan. No physical complaints. No alcohol or street drug use. - Related Data Home Medications Medication Instructions Recorded Confirmed Nortrel 7-7-7 1 tab PO AC-SUPPER 01/10/22 02/22/22 LORazepam [Ativan] 0.5 mg PO BID PRN 02/17/22 02/22/22 Cholecalciferol [Vitamin D3 (125 125 mcg PO DAILY 02/22/22 02/22/22 Mcg = 5000 Iu)] Magnesium Carb,Citrate,Oxide 300 mg PO DAILY 02/22/22 02/22/22 [Magnesium Complex] Melatonin 5 mg PO HS PRN 02/22/22 02/22/22 OLANZapine [ZyPREXA] 10 mg PO DAILY@1900 02/22/22 02/22/22 Pyridoxine HCl (Vitamin B6) 100 mg PO DAILY 02/22/22 02/22/22 [Vitamin B-6] risperiDONE [RisperDAL] See Taper PO DAILY@0600 02/22/22 02/22/22 Previous Rx's Medication Instructions Recorded Escitalopram [Lexapro] 20 mg PO DAILY 30 Days tab 01/13/22 Allergies Allergy/AdvReac Type Severity Reaction Status Date / Time No Known Allergies Allergy Verified 02/22/22 10:58 Review of Systems ROS Statement: Those systems with pertinent positive or pertinent negative responses have been documented in the HPI. ROS Other: All systems not noted in ROS Statement are negative. Constitutional: Denies: fever Eyes: Denies: eye pain ENT: Denies: ear pain Respiratory: Denies: cough Cardiovascular: Denies: chest pain Endocrine: Denies: fatigue Gastrointestinal: Denies: abdominal pain Psychiatric: Reports: auditory hallucinations, suicidal thoughts. Denies: visual hallucinations, homicidal thoughts Past Medical History Past Medical History: No Reported History History of Any Multi-Drug Resistant Organisms: None Reported Past Surgical History: No Surgical Hx Reported Past Psychological History: Anxiety, Depression Smoking Status: Never smoker Past Alcohol Use History: None Reported Past Drug Use History: None Reported General Exam Limitations: no limitations General appearance: alert, in no apparent distress Head exam: Present: atraumatic Eye exam: Present: normal appearance Neck exam: Present: normal inspection Respiratory exam: Present: normal lung sounds bilaterally Cardiovascular Exam: Present: regular rate, normal rhythm GI/Abdominal exam: Present: soft. Absent: tenderness Extremities exam: Present: normal inspection Neurological exam: Present: alert Psychiatric exam: Present: normal affect, normal mood Skin exam: Present: normal color Course Vital Signs 02/22/22 09:43 Temperature 98.0 F Pulse Rate 80 Respiratory 18 Rate Blood Pressure 105/70 O2 Sat by Pulse 95 Oximetry Medical Decision Making - Medical Decision Making Patient was seen by mental health services with plans for admission. - Lab Data Lab Results 02/22/22 Range/Units 10:33 Urine Opiates Screen Not Detected (NotDetected) Ur Oxycodone Screen Not Detected (NotDetected) Urine Methadone Screen Not Detected (NotDetected) Ur Propoxyphene Screen Not Detected (NotDetected) Ur Barbiturates Screen Not Detected (NotDetected) U Tricyclic Antidepress Not Detected (NotDetected) Ur Phencyclidine Scrn Not Detected (NotDetected) Ur Amphetamines Screen Not Detected (NotDetected) U Methamphetamines Scrn Not Detected (NotDetected) U Benzodiazepines Scrn Detected H (NotDetected) Urine Cocaine Screen Not Detected (NotDetected) U Marijuana (THC) Screen Not Detected (NotDetected) Disposition Clinical Impression: Psychosis, Major depressive disorder Disposition: TRANSFER TO PSYCH HOSP/UNIT Is patient prescribed a controlled substance at d/c from ED?: No Referrals: Ruben George MD [Primary Care Provider] - 1-2 days Time of Disposition: 12:02
[2022-02-22 11:22] LABS: Amphetamine Screen,Urine Not Detected (NotDetected); Barbiturate Screen,Urine Not Detected (NotDetected); Benzodiazepines Screen,Urine Detected (NotDetected); Cocaine Screen,Urine Not Detected (NotDetected); Methadone Screen, Urine Not Detected (NotDetected); Opiate Screen,Urine Not Detected (NotDetected); Oxycodone Screen, Urine Not Detected (NotDetected); Phencyclidine Screen,Urine Not Detected (NotDetected); Tricyclic Antidepressant,Urine Not Detected (NotDetected); Urn Cannabinoid Scrn Not Detected (NotDetected)
[2022-02-22] MEDS ORDERED: MAG HYDROX/AL HYDROX/SIMETH 30 ML CUP PO PRN (13:46)
[2022-02-22] MEDS ORDERED: MAGNESIUM HYDROXIDE 2,400 MG/10 ML CUP PO PRN (13:46)
[2022-02-22] MEDS ORDERED: HALOPERIDOL LACTATE 5 MG/ML 1 ML VIAL IM PRN (13:46)
[2022-02-22] MEDS ORDERED: ACETAMINOPHEN TAB 325 MG TAB PO PRN (13:46)
[2022-02-22] MEDS: haloperidoL 5 MG TAB PO SCH ×2 (17:23→21:28)
[2022-02-22] MEDS: LORazepam 0.5 MG TAB PO PRN (17:23)
[2022-02-22] MEDS: OLANZapine 10 MG TAB PO SCH (18:25)
--- NOTE | 2022-02-22 20:03 | CONS ---
CONSULTATION This is a 26-year-old white female who has auditory hallucinations that are unstoppable. She says she does want to live like this anymore. She has had some suicidal thoughts. She has been in and out of the hospital three times. She does not want to live like this anymore. She has failed multiple agents, including Risperdal, Zyprexa, some Haldol, some Abilify. She hears voices nonstop. She says anxiety medicines just calm the voices down, but she still hears them. She feels paranoid, big- time paranoia. She has no alcohol or street drug use. Discussed with her mom and dad. They think she has been hearing voices for a long time. She might need some high-dose antipsychotics to work, as none of these regular ones seem to be working. She has never given a full two-month trial to the medicines as they have not worked; the voices continue to be severe, to the point where she has to come back into the hospital despite, for instance, she was on Risperdal 2 mg b.i.d. with no improvement in the voices and she got worse when Psychiatry as an outpatient switched her over to Zyprexa and cut her Risperdal in half; her voices got out of control. That is why she is back. MEDICATIONS: See list. ALLERGIES: NEGATIVE. Fourteen-point review of system negative except for severe paranoia and some suicidal ideations. PHYSICAL EXAMINATION: Temperature 98, pulse 80, respiratory rate 16 to 18, blood pressure 105/70, O2 95. Cardiovascular S1-S2. Lungs clear. GI soft. Hematology negative Homans. Drug screen is positive for benzodiazepines. She does take Ativan 0.5 every 12 to 8 hours p.r.n. for anxiety. ASSESSMENT: 1. Psychosis. 2. Major depressive disorder. Appears to be resistant to multiple use of antipsychotics at this point. She may need some high-dose medications or possibly transfer down to [facility] for long-term inpatient care until she stabilizes with her auditory voices. Every time she has been sent home from the hospital she has had voices, but she never told anybody they were still there. MMODL / IJN: [id number] /
[2022-02-23] MEDS ORDERED: risperiDONE 0.5 MG TAB PO SCH (06:00)
[2022-02-23] MEDS: LORazepam 0.5 MG TAB PO PRN (07:05)
[2022-02-23 07:28] LABS: Basophils % (A) 1 %; Eosinophils # (A) 0.1 k/uL (0-0.7); Eosinophils % (A) 3 %; HCT 43.5 % (34.0-46.0); HGB 13.5 gm/dL (11.4-16.0); Lymphocytes # (A) 2.8 k/uL (1.0-4.8); Lymphocytes % (A) 53 %; MCH 30.5 pg (25.0-35.0); MCV 98.4 fL (80.0-100.0); Mean Platelet Volume 7.4; Monocytes # (A) 0.4 k/uL (0-1.0); Monocytes % (A) 7 %; Neutrophils # (A) 1.8 k/uL (1.3-7.7); Neutrophils % (A) 34 %; Platelet Count 209 k/uL (150-450); RBC 4.42 m/uL (3.80-5.40); RDW 12.6 % (11.5-15.5); WBC 5.2 k/uL (3.8-10.6)
[2022-02-23 07:43] LABS: ALT 20 U/L (4-34); AST 27 U/L (14-36); African American GFR (CKD) >90 (>60 ml/min/1.73 sqM); Albumin 4.3 g/dL (3.5-5.0); Alkaline Phosphatase <20 U/L (38-126); Anion Gap 10 mmol/L; Blood Urea Nitrogen 20 mg/dL (7-17); Calcium 9.1 mg/dL (8.4-10.2); Carbon Dioxide 27 mmol/L (22-30); Chloride 103 mmol/L (98-107); Glucose 87 mg/dL (74-99); Non-African American GFR(CKD) 82 (>60 ml/min/1.73 sqM); Potassium 4.5 mmol/L (3.5-5.1); Sodium 140 mmol/L (137-145); Total Bilirubin 0.5 mg/dL (0.2-1.3); Total Protein 7.3 g/dL (6.3-8.2)
[2022-02-23] MEDS: CHOLECALCIFEROL 125 MCG (5000 IU) TABLET PO SCH (08:50)
[2022-02-23] MEDS: PYRIDOXINE 50 MG TAB PO SCH (08:50)
[2022-02-23] MEDS: MAGNESIUM OXIDE 400 MG TAB PO SCH (08:51)
[2022-02-23] MEDS: haloperidoL 5 MG TAB PO SCH (08:51)
[2022-02-23] MEDS: NICOTINE 14MG/24HR PATCH TRANSDERM SCH (08:53)
--- NOTE | 2022-02-23 10:06 | P.HP ---
Psychiatric H&P - . H&P Date: 02/23/22 History & Physical: Allergies Allergy/AdvReac Type Severity Reaction Status Date / Time No Known Allergies Allergy Verified 02/22/22 10:58 Vital Signs Temp 96.8 F L 02/23/22 07:07 Pulse 68 02/23/22 07:07 Resp 14 02/23/22 07:07 BP 103/66 02/23/22 07:07 Pulse Ox 98 02/22/22 13:45 Intake & Output 02/22/22 02/23/22 02/23/22 18:59 06:59 18:59 Weight 62.9 kg Laboratory Last Values WBC 5.2 k/uL (3.8-10.6) 02/23/22 06:35 RBC 4.42 m/uL (3.80-5.40) 02/23/22 06:35 Hgb 13.5 gm/dL (11.4-16.0) 02/23/22 06:35 Hct 43.5 % (34.0-46.0) 02/23/22 06:35 MCV 98.4 fL (80.0-100.0) 02/23/22 06:35 MCH 30.5 pg (25.0-35.0) 02/23/22 06:35 MCHC 31.0 g/dL (31.0-37.0) 02/23/22 06:35 RDW 12.6 % (11.5-15.5) 02/23/22 06:35 Plt Count 209 k/uL (150-450) 02/23/22 06:35 MPV 7.4 02/23/22 06:35 Neutrophils % 34 % 02/23/22 06:35 Lymphocytes % 53 % 02/23/22 06:35 Monocytes % 7 % 02/23/22 06:35 Eosinophils % 3 % 02/23/22 06:35 Basophils % 1 % 02/23/22 06:35 Neutrophils # 1.8 k/uL (1.3-7.7) 02/23/22 06:35 Lymphocytes # 2.8 k/uL (1.0-4.8) 02/23/22 06:35 Monocytes # 0.4 k/uL (0-1.0) 02/23/22 06:35 Eosinophils # 0.1 k/uL (0-0.7) 02/23/22 06:35 Basophils # 0.0 k/uL (0-0.2) 02/23/22 06:35 Sodium 140 mmol/L (137-145) 02/23/22 06:35 Potassium 4.5 mmol/L (3.5-5.1) 02/23/22 06:35 Chloride 103 mmol/L (98-107) 02/23/22 06:35 Carbon Dioxide 27 mmol/L (22-30) 02/23/22 06:35 Anion Gap 10 mmol/L 02/23/22 06:35 BUN 20 mg/dL (7-17) H 02/23/22 06:35 Creatinine 0.97 mg/dL (0.52-1.04) 02/23/22 06:35 Est GFR (CKD-EPI)AfAm >90 (>60 ml/min/1.73 sqM) 02/23/22 06:35 Est GFR (CKD-EPI)NonAf 82 (>60 ml/min/1.73 sqM) 02/23/22 06:35 Glucose 87 mg/dL (74-99) 02/23/22 06:35 Calcium 9.1 mg/dL (8.4-10.2) 02/23/22 06:35 Total Bilirubin 0.5 mg/dL (0.2-1.3) 02/23/22 06:35 AST 27 U/L (14-36) 02/23/22 06:35 ALT 20 U/L (4-34) 02/23/22 06:35 Alkaline Phosphatase <20 U/L (38-126) L 02/23/22 06:35 Total Protein 7.3 g/dL (6.3-8.2) 02/23/22 06:35 Albumin 4.3 g/dL (3.5-5.0) 02/23/22 06:35 Urine Opiates Screen Not Detected (NotDetected) 02/22/22 10:33 Ur Oxycodone Screen Not Detected (NotDetected) 02/22/22 10:33 Urine Methadone Screen Not Detected (NotDetected) 02/22/22 10:33 Ur Propoxyphene Screen Not Detected (NotDetected) 02/22/22 10:33 Ur Barbiturates Screen Not Detected (NotDetected) 02/22/22 10:33 U Tricyclic Antidepress Not Detected (NotDetected) 02/22/22 10:33 Ur Phencyclidine Scrn Not Detected (NotDetected) 02/22/22 10:33 Ur Amphetamines Screen Not Detected (NotDetected) 02/22/22 10:33 U Methamphetamines Scrn Not Detected (NotDetected) 02/22/22 10:33 U Benzodiazepines Scrn Detected (NotDetected) H 02/22/22 10:33 Urine Cocaine Screen Not Detected (NotDetected) 02/22/22 10:33 U Marijuana (THC) Screen Not Detected (NotDetected) 02/22/22 10:33 Coronavirus (PCR) Not Detected (Not Detectd) 02/22/22 12:07 02/23/22 10:00 Psychiatric evaluation: This is a psychiatry assessment on Joceline Hagan who is a 26-year-old female and who is a previous patient of Dr. Caldera The patient states that she has had a previous hospitalization about a month ago She says that she was having her medications adjusted where she was on Risperdal which was being tapered and that she was slowly being switched to Zyprexa Patient however states that the voices seem to get worse and unknowing She says that she has had some suicidal thoughts at that time and felt overwhelmed Patient with her current presentation and overwhelming thoughts of wanting to hurt herself was felt to be dangerous to herself or others and was hospitalized for further evaluation and treatment Patient denies any alcohol or substance use in the past when the present Past history personal and social history: Patient states that she currently lives with her parents She says that she has a bachelor's degree but is currently unemployed She denies being in any relationship or having any children She says that she spends most of her time at home around her family She states that the voices started about 2 months ago out of nowhere Patient denies that there is family history of any mental illness She states that she may have heard voices in September of last year but had ignored at that time Mental status examination: Reveals a young female who looks her age and currently appears in no acute physical distress The patient is alert and oriented to time place and person Personal hygiene and Gen. appearance is fair Thought processes are goal-directed sequential and logical Speech was appropriate to the talk and thought content Patient admits to intermittent auditory hallucinations and denies any command hallucinations Patient's formal and operational judgment at this time appears to be concrete but fair Patient's insight into her problem is partial Problem-solving abilities impaired Patient currently denies any suicidal or homicidal ideations but feels that she is in a protected environment Diagnostic impression: Adjustment disorder with mixed emotional features Schizoaffective disorder by history Rule out bipolar disorder manic type Plan: The patient currently meets the criteria for hospitalization to improve her stability and coping skills 2 patient will also participate in on the [facility] individual milieu group OT RT PT and pharmacotherapy 3 will discontinue the Risperdal and start the patient on Zyprexa 10 mg at nighttime to start within titrated to response 4 approximate length of stay will be 5-7 days Que Rui Galicia 02/23/2022
[2022-02-23 11:00] LABS: Chol/HDL Ratio 2.48 Ratio; LDL Cholesterol,Calculated 80.1 mg/dL (0.0-131.0)
[2022-02-23] MEDS: OLANZapine 10 MG TAB PO SCH (18:07)
[2022-02-24] MEDS: NICOTINE 14MG/24HR PATCH TRANSDERM SCH (07:50)
[2022-02-24] MEDS: CHOLECALCIFEROL 125 MCG (5000 IU) TABLET PO SCH (08:16)
[2022-02-24] MEDS: PYRIDOXINE 50 MG TAB PO SCH (08:17)
[2022-02-24] MEDS: MAGNESIUM OXIDE 400 MG TAB PO SCH (08:17)
--- NOTE | 2022-02-24 09:30 | P.PN ---
Subjective Progress Note Date: 02/24/22 Principal diagnosis: Schizoaffective disorder I was being tapered from the Risperdal and they were slowly increasing the Zyprexa The voices are little bit better Can I go home today " Objective data: Patient interacts well affect at this time appears to be flat Thinking is very concrete and simple Denies any suicidal or homicidal ideations or plans Insight into her problem is limited Formal and operational judgment are impaired Problem-solving abilities poor Plan: Patient continues to meet the criteria for current hospitalization for stabilization and treatment Patient was given information regarding her current medication management We'll continue the Zyprexa as recommended Continue supportive care Continue participation in milieu treatment Que Rui Galicia 02/24/2022 Objective - Vital Signs Vital signs: Vital Signs Temp 96.8 F L 02/23/22 07:07 Pulse 88 02/24/22 08:22 Resp 18 02/24/22 08:22 BP 114/65 02/24/22 08:22 Pulse Ox 98 02/22/22 13:45 - Labs CBC & Chem 7: 02/23/22 06:35 02/23/22 06:35 Labs: Abnormal Lab Results - Last 24 Hours (Table) 02/23/22 Range/Units 06:35 HDL Cholesterol 71.70 H (40.00-60.00) mg/dL
[2022-02-24] MEDS: LORazepam 2 MG/ML INJ IM PRN (10:41)
[2022-02-24] MEDS: OLANZapine 10 MG TAB PO SCH (19:33)
[2022-02-24] MEDS: MELATONIN 5 MG TABLET PO PRN (19:33)
[2022-02-24] MEDS: haloperidoL 5 MG TAB PO PRN (19:54)
[2022-02-25 06:58] VITALS: RESP 16
[2022-02-25] MEDS: PYRIDOXINE 50 MG TAB PO SCH (08:13)
[2022-02-25] MEDS: CHOLECALCIFEROL 125 MCG (5000 IU) TABLET PO SCH (08:13)
[2022-02-25] MEDS: haloperidoL 5 MG TAB PO PRN (08:13)
[2022-02-25] MEDS: MAGNESIUM OXIDE 400 MG TAB PO SCH (08:13)
[2022-02-25] MEDS: NICOTINE 14MG/24HR PATCH TRANSDERM SCH (08:15)
--- NOTE | 2022-02-25 09:10 | P.PN ---
Subjective Progress Note Date: 02/25/22 Principal diagnosis: Schizoaffective disorder We have to call my parents right now I'm still having those voices again and then never leave me alone I also get angry and upset I'm also getting very angry right now I need some medications that will help me Objective data: Patient exhibits anxiety and restlessness at this time. She is neatly dressed and groomed. Affect seems to be labile Insight into her problem is poor Thought processes are flighty Formal and operational judgment and insight are poor Kirsten Fabian is redirectable Plan: Patient continues to meet the criteria for current hospitalization for stabilization and treatment Patient was given information regarding her current medication management We'll increase the Zyprexa to 5 mg in the morning and 10 mg at bedtime We'll also add Depakote 500 mg twice a day to start within titrated to response with a follow-up valproate level after 4 days Continue supportive care and reassurance [facility] Objective - Vital Signs Vital signs: Vital Signs Temp 97.9 F 02/25/22 06:56 Pulse 57 L 02/25/22 06:56 Resp 16 02/25/22 06:56 BP 87/48 02/25/22 06:56 Pulse Ox 98 02/25/22 06:56 - Labs CBC & Chem 7: 02/23/22 06:35 02/23/22 06:35
[2022-02-25] MEDS: OLANZapine 5 MG TAB PO SCH (09:24)
[2022-02-25] MEDS: LORazepam 2 MG/ML INJ IM PRN (12:30)
[2022-02-25] MEDS: OLANZapine 10 MG TAB PO SCH (18:05)
[2022-02-25] MEDS: DIVALPROEX 500 MG TABLET.DR PO SCH (20:42)
[2022-02-25] MEDS: MELATONIN 5 MG TABLET PO PRN (20:42)
[2022-02-26] MEDS: NICOTINE 14MG/24HR PATCH TRANSDERM SCH (08:19)
[2022-02-26] MEDS: MAGNESIUM OXIDE 400 MG TAB PO SCH (08:20)
[2022-02-26] MEDS: PYRIDOXINE 50 MG TAB PO SCH (08:20)
[2022-02-26] MEDS: DIVALPROEX 500 MG TABLET.DR PO SCH ×2 (08:20→19:57)
[2022-02-26] MEDS: CHOLECALCIFEROL 125 MCG (5000 IU) TABLET PO SCH (08:20)
[2022-02-26] MEDS: OLANZapine 5 MG TAB PO SCH (08:20)
--- NOTE | 2022-02-26 10:27 | P.PN ---
Subjective Progress Note Date: 02/26/22 Principal diagnosis: Schizoaffective disorder I'm feeling a lot better The voices are much less intolerable When do you think I can go home I feel much more relaxed Objective data: The patient is neatly dressed and groomed Affect at this time appears to be fair Speech was appropriate but somewhat quick and abrupt Thought processes are goal-directed sequential and logical Patient overall was pleasant in interaction and feels positive about her current medications No side effects reported Plan: Patient continues to meet the criteria for current hospitalization for stabili zation and treatment Patient was given information regarding her current medication management The patient is responding to Zyprexa 5 mg in the morning and 10 mg at bedtime Depakote 500 mg twice a day to start within titrated to response with a follow- up valproate level after 4 days Continue supportive care and reassurance Maintain safety precautions [facility] 02/26/2022 Objective - Vital Signs Vital signs: Vital Signs Temp 97.6 F 02/26/22 07:02 Pulse 65 02/26/22 07:02 Resp 16 02/25/22 06:56 BP 100/58 02/26/22 07:02 Pulse Ox 97 02/26/22 07:02 - Labs CBC & Chem 7: 02/23/22 06:35 02/23/22 06:35
[2022-02-26] MEDS: haloperidoL 5 MG TAB PO PRN (12:15)
[2022-02-26] MEDS: OLANZapine 10 MG TAB PO SCH (18:22)
[2022-02-26] MEDS: MELATONIN 5 MG TABLET PO PRN (19:57)
[2022-02-27] MEDS: haloperidoL 5 MG TAB PO PRN ×2 (06:10→17:16)
[2022-02-27] MEDS: MAGNESIUM OXIDE 400 MG TAB PO SCH (06:11)
[2022-02-27] MEDS: CHOLECALCIFEROL 125 MCG (5000 IU) TABLET PO SCH (06:11)
[2022-02-27] MEDS: PYRIDOXINE 50 MG TAB PO SCH (06:11)
[2022-02-27] MEDS: DIVALPROEX 500 MG TABLET.DR PO SCH ×2 (07:57→20:34)
[2022-02-27] MEDS: OLANZapine 5 MG TAB PO SCH (07:58)
--- NOTE | 2022-02-27 08:07 | P.PN ---
Subjective Progress Note Date: 02/27/22 Principal diagnosis: Schizoaffective disorder I don't feel like talking now I think I need to get some more on my sleep The voices are better" Objective data: The patient was laying in bed and keeps pulling the sheet over her head Patient seems somewhat irritable when trying to engage in a conversation Speech was appropriate but somewhat quick and abrupt Thought processes are goal-directed sequential and logical Patient feels positive about her current medications No side effects reported Plan: Patient continues to meet the criteria for current hospitalization for stabi lization and treatment Patient was given information regarding her current medication management The patient is responding to Zyprexa 5 mg in the morning and 10 mg at bedtime Depakote 500 mg twice a day to start within titrated to response with a follow- up valproate level after 4 days Continue supportive care and reassurance [facility] Objective - Vital Signs Vital signs: Vital Signs Temp 97.6 F 02/26/22 07:02 Pulse 65 02/26/22 07:02 Resp 16 02/25/22 06:56 BP 100/58 02/26/22 07:02 Pulse Ox 97 02/26/22 07:02 Intake & Output 02/26/22 02/27/22 02/27/22 18:59 06:59 18:59 Weight 62.9 kg - Labs CBC & Chem 7: 02/23/22 06:35 02/23/22 06:35
[2022-02-27] MEDS: OLANZapine 10 MG TAB PO SCH (18:19)
[2022-02-27] MEDS: MELATONIN 5 MG TABLET PO PRN (20:46)
[2022-02-28] MEDS: OLANZapine 5 MG TAB PO SCH (08:39)
[2022-02-28] MEDS: PYRIDOXINE 50 MG TAB PO SCH (08:39)
[2022-02-28] MEDS: MAGNESIUM OXIDE 400 MG TAB PO SCH (08:39)
[2022-02-28] MEDS: CHOLECALCIFEROL 125 MCG (5000 IU) TABLET PO SCH (08:39)
[2022-02-28] MEDS: DIVALPROEX 500 MG TABLET.DR PO SCH ×2 (08:39→20:40)
[2022-02-28] MEDS ORDERED: OLANZapine 5 MG TAB PO ONE (16:30)
--- NOTE | 2022-02-28 17:51 | PN ---
PROGRESS NOTE DATE OF SERVICE: 02/28/2022 CHIEF COMPLAINT: The patient was having auditory hallucinations and overwhelming thoughts of wanting to hurt herself. INTERVAL HISTORY: The patient had a quiet day yesterday. She chose not to attend groups. She comes out on the unit. She tends to keep to herself. She does interact in a limited way with others. She has been appropriate in her interactions. She has been compliant with care. It was documented she slept 6 hours last night. Today she has been doing fair. She wanders the unit. She attended 3 groups so far today, though it is noted in the 1530 group that after 15 minutes she left the group, stating "I don't feel well enough to do this right now." When I talked to the patient, she continues to report having auditory hallucinations. She says mainly the voices are various people who were co- workers with her when she had her job at an [employer]. She says the voices tend to be quite persistent and that she has been noting them for about 2 months. She has not had a prior psychiatric admission before her January 11 admission. She had been on Adderall for ADHD, which she took for about 10 years, though stopped that 2 months ago or more when the voices started up. She does not have a history of substance use issues. She has been prescribed Ativan, which she has been using fairly regularly for the last month. She continues to complain of significant anxiety. She tolerates her psychotropic medications. MENTAL STATUS: Patient gave good eye contact. She answered questions appropriately. Her thoughts were clear, coherent and goal-directed. She was spontaneous and somewhat interactive. Her affect was blunted. She did not show much emotional response one way or another. Her mood was dysphoric. She was moderately distressed. She continues to report pervasive auditory hallucinations. She voiced no thoughts of harm. At the time of the interview she was oriented and alert. ASSESSMENT: I will continue the current diagnosis of psychosis. We will continue to make efforts to engage the patient in individual and group therapeutic activities. She will continue Depakote 500 mg twice a day, which was just started on February 25. The indication is not clear in regard to Depakote. She continues on Zyprexa for psychosis. I will increase her dose. She will continue 5 mg in the morning and receive 15 mg at 1900 hours. I discussed the downside for her using benzodiazepines on a regular basis. I reviewed medication issues with the patient, including indication for her Zyprexa, potential side effects and concerns related to metabolics and movement disorder issues. We will focus on stabilization and discharge planning. IKER / BRAYAN: [id number] /
[2022-02-28] MEDS ORDERED: OLANZapine 7.5 MG TAB PO SCH (19:00)
[2022-02-28] MEDS: MELATONIN 5 MG TABLET PO PRN (20:41)
[2022-03-01 06:55] VITALS: BP 92/53; PULSE 70; TEMP 98
[2022-03-01] MEDS: PYRIDOXINE 50 MG TAB PO SCH (08:27)
[2022-03-01] MEDS: CHOLECALCIFEROL 125 MCG (5000 IU) TABLET PO SCH (08:28)
[2022-03-01] MEDS: OLANZapine 5 MG TAB PO SCH (08:28)
[2022-03-01] MEDS: DIVALPROEX 500 MG TABLET.DR PO SCH (08:28)
[2022-03-01] MEDS: MAGNESIUM OXIDE 400 MG TAB PO SCH (08:28)
--- NOTE | 2022-03-01 12:01 | P.DS ---
Providers Date of admission: 02/22/22 13:45 Expected date of discharge: 03/01/22 Attending physician: Arcadio Guerra MD Consults: 02/22/22 14:49 Consult Physician Routine Consulting Provider: Ruben George Consult Reason/Comments: history and physical Do you want consulting provider notified?: Yes Primary care physician: Ruben George - Discharge Diagnosis(es) (1) Schizoaffective disorder, depressive type Current Visit: Yes Status: Acute Priority: High Hospital Course: Admission HPI: Initial psychiatric evaluation was completed by Dr Fabian on 02/23/2022: "This is a psychiatry assessment on Joceline Hagan who is a 26-year-old female and who is a previous patient of Dr. Caldera The patient states that she has had a previous hospitalization about a month ago She says that she was having her medications adjusted where she was on Risperdal which was being tapered and that she was slowly being switched to Zyprexa Patient however states that the voices seem to get worse and unknowing She says that she has had some suicidal thoughts at that time and felt overwhelmed Patient with her current presentation and overwhelming thoughts of wanting to hurt herself was felt to be dangerous to herself or others and was hospitalized for further evaluation and treatment Patient denies any alcohol or substance use in the past when the present" Hospital course: Upon admission to the unit patient was initially endorsing suicidal ideation and worsening auditory hallucinations. Patient was however directable and agreeable to commence treatment. Patient got along well with other patients on the unit and followed unit protocol. Patient was compliant with the medications and denied any side effects throughout hospital course. Patient was started on her regimen of Zyprexa which was titrated to address her target symptoms of psychosis. Patient spoke of her stressors and engaged in therapy both group and individual. Patient was also seen by medical team for history and physical exam. Over the course of the hospitalization, the patient displayed gradual improvement in regards to her target symptoms of suicidal ideation, paranoia, and auditory hallucinations. She had improved sleep, appetite, and tolerance of her medications. She also gained further insight and judgment. On the day of discharge, the patient is not reporting any suicidal or homicidal ideation, intention, and/or plan. She is not reporting any visual hallucinations. She does report her auditory hallucinations to be 2 out of 10 in severity with 10 being very severe. She states that her auditory hallucinations are much more tolerable. She reports that she feels safe to go return home. She denies any significant paranoia and does report that she is able to recognize that she is having paranoid thoughts. The patient was counseled on importance of medication adherence appropriate outpatient follow-up. Furthermore, the patient was counseled on her medications and the risks, benefits, and side effects. The patient does not have a significant history of substance use however was counseled on abstaining from all substances including alcohol and marijuana. Prior to discharge, family meeting will be arranged by mental health social worker to answer any questions and ensure safety. Mental status exam: General Appearance: Patient appears to be stated age is alert, pleasant, and cooperative. Patient is in no acute distress and has fair hygiene and grooming Behavior: Patient is calmly seated without any agitated behavior. Eye contact is appropriate. Speech: Patient's speech is fluent and nonpressured. Mood/Affect: Patient reports their mood is "much better", affect is congruent and euthymic to bright. Suicidality/Homicidality: Patient denies having any suicidal or homicidal ideation intent or plan. Perceptions: Patient denies any auditory or visual hallucinations. Though content/process: There is no evidence of any delusional thought content and thought process is linear and goal-directed. Patient is future oriented. Memory and concentration: AOX3, grossly intact for the purposes of this session. Can spell "WORLD" backwards correctly. Judgment and insight: Improved with guarded prognosis Vital Signs Temp 98 F 03/01/22 06:52 Pulse 70 03/01/22 06:52 Resp 16 02/25/22 06:56 BP 92/53 03/01/22 06:52 Pulse Ox 98 03/01/22 06:52 Impression: Schizoaffective disorder, depressed type Plan: -Continue with discharge today as patient has improved and stabilized psychiatrically and is not currently an imminent threat to herself and/or others. Patient will remain at chronically elevated risk for harm to self and/or others due to her severity of mental illness -Continue medications: Zyprexa 5 mg by mouth every morning and 15 mg by mouth daily at bedtime for psychosis Depakote 500 mg by mouth twice a day for augmentation of antipsychotic. Will defer to outpatient psychiatric provider whether Depakote is necessary to continue. -Patient was counseled on the need for medication compliance and appropriate follow-up at mental health and also primary care for medical issues. Patient verbalized understanding and agreed. -Social work to arrange for and conduct family meeting to ensure safety upon discharge and answer any questions/concerns. Social work also to arrange for patients follow up appointments with [facility] for psychiatric care along with follow up with primary care provider. -Patient counseled on abstaining from recreational drugs and marijuana and alcohol. Was informed/educated on the adverse effects on their physical and mental health. Patient verbally agreed and understood. -Patient was instructed to return to the hospital or seek immediate medical care if their psychiatric or medical symptoms do worsen or reoccur. -Psychoeducation and supportive therapy provided to patient. Risks and benefits of pharmacological treatment versus the risks and benefits of nontreatment weight and discussed. Informed consent discussion held. Common side effects of psychotropics discussed such as, but not limited to headache, GI disturbance, sexual dysfunction, movement disorders, sedation, and orthostatic hypotension. Life threatening and blackbox warnings of prescribed medications also discussed. Potential risks of operating a vehicle or heavy machinery discussed with patient at length. Advised on importance of compliance and a reliable and responsible manner. Patient advised to review FDA consumer labeling of all medications prior to taking. Patient verbalized understanding of potential risks, and agrees with current treatment plan. Patient advised to medically contact physician/emergency personnel if any acute changes in condition occur. Laboratory Results WBC 5.2 k/uL (3.8-10.6) 02/23/22 06:35 RBC 4.42 m/uL (3.80-5.40) 02/23/22 06:35 Hgb 13.5 gm/dL (11.4-16.0) 02/23/22 06:35 Hct 43.5 % (34.0-46.0) 02/23/22 06:35 MCV 98.4 fL (80.0-100.0) 02/23/22 06:35 MCH 30.5 pg (25.0-35.0) 02/23/22 06:35 MCHC 31.0 g/dL (31.0-37.0) 02/23/22 06:35 RDW 12.6 % (11.5-15.5) 02/23/22 06:35 Plt Count 209 k/uL (150-450) 02/23/22 06:35 MPV 7.4 02/23/22 06:35 Neutrophils % 34 % 02/23/22 06:35 Lymphocytes % 53 % 02/23/22 06:35 Monocytes % 7 % 02/23/22 06:35 Eosinophils % 3 % 02/23/22 06:35 Basophils % 1 % 02/23/22 06:35 Neutrophils # 1.8 k/uL (1.3-7.7) 02/23/22 06:35 Lymphocytes # 2.8 k/uL (1.0-4.8) 02/23/22 06:35 Monocytes # 0.4 k/uL (0-1.0) 02/23/22 06:35 Eosinophils # 0.1 k/uL (0-0.7) 02/23/22 06:35 Basophils # 0.0 k/uL (0-0.2) 02/23/22 06:35 Sodium 140 mmol/L (137-145) 02/23/22 06:35 Potassium 4.5 mmol/L (3.5-5.1) 02/23/22 06:35 Chloride 103 mmol/L (98-107) 02/23/22 06:35 Carbon Dioxide 27 mmol/L (22-30) 02/23/22 06:35 Anion Gap 10 mmol/L 02/23/22 06:35 BUN 20 mg/dL (7-17) H 02/23/22 06:35 Creatinine 0.97 mg/dL (0.52-1.04) 02/23/22 06:35 Est GFR (CKD-EPI)AfAm >90 (>60 ml/min/1.73 sqM) 02/23/22 06:35 Est GFR (CKD-EPI)NonAf 82 (>60 ml/min/1.73 sqM) 02/23/22 06:35 Glucose 87 mg/dL (74-99) 02/23/22 06:35 Calcium 9.1 mg/dL (8.4-10.2) 02/23/22 06:35 Total Bilirubin 0.5 mg/dL (0.2-1.3) 02/23/22 06:35 AST 27 U/L (14-36) 02/23/22 06:35 ALT 20 U/L (4-34) 02/23/22 06:35 Alkaline Phosphatase <20 U/L (38-126) L 02/23/22 06:35 Total Protein 7.3 g/dL (6.3-8.2) 02/23/22 06:35 Albumin 4.3 g/dL (3.5-5.0) 02/23/22 06:35 Triglycerides 131.00 mg/dL (0.00-149.00) 02/23/22 06:35 Cholesterol 178.00 mg/dL (0.00-200.00) 02/23/22 06:35 LDL Cholesterol, Calc 80.1 mg/dL (0.0-131.0) 02/23/22 06:35 VLDL Cholesterol, Calc 26.20 mg/dL (5.00-40.00) 02/23/22 06:35 HDL Cholesterol 71.70 mg/dL (40.00-60.00) H 02/23/22 06:35 Cholesterol/HDL Ratio 2.48 Ratio 02/23/22 06:35 Urine Opiates Screen Not Detected (NotDetected) 02/22/22 10:33 Ur Oxycodone Screen Not Detected (NotDetected) 02/22/22 10:33 Urine Methadone Screen Not Detected (NotDetected) 02/22/22 10:33 Ur Propoxyphene Screen Not Detected (NotDetected) 02/22/22 10:33 Ur Barbiturates Screen Not Detected (NotDetected) 02/22/22 10:33 U Tricyclic Antidepress Not Detected (NotDetected) 02/22/22 10:33 Ur Phencyclidine Scrn Not Detected (NotDetected) 02/22/22 10:33 Ur Amphetamines Screen Not Detected (NotDetected) 02/22/22 10:33 U Methamphetamines Scrn Not Detected (NotDetected) 02/22/22 10:33 U Benzodiazepines Scrn Detected (NotDetected) H 02/22/22 10:33 Urine Cocaine Screen Not Detected (NotDetected) 02/22/22 10:33 U Marijuana (THC) Screen Not Detected (NotDetected) 02/22/22 10:33 Coronavirus (PCR) Not Detected (Not Detectd) 02/22/22 12:07 Allergies Allergy/AdvReac Type Severity Reaction Status Date / Time No Known Allergies Allergy Verified 02/26/22 13:11 Patient Condition at Discharge: Stable Plan - Discharge Summary New Discharge Prescriptions: New Melatonin 5 mg PO HS PRN 30 Days tablet PRN Reason: Insomnia Divalproex [Depakote] 500 mg PO BID 30 Days tablet OLANZapine [ZyPREXA] 15 mg PO DAILY@1900 30 Days tab OLANZapine [ZyPREXA] 5 mg PO DAILY 30 Days tab Continue Nortrel 04-21-7 1 tab PO AC-SUPPER LORazepam [Ativan] 0.5 mg PO BID PRN PRN Reason: Anxiety Cholecalciferol [Vitamin D3 (125 Mcg = 5000 Iu)] 125 mcg PO DAILY Magnesium Carb,Citrate,Oxide [Magnesium Complex] 300 mg PO DAILY Pyridoxine HCl (Vitamin B6) [Vitamin B-6] 100 mg PO DAILY Discontinued Escitalopram [Lexapro] 20 mg PO DAILY 30 Days tab OLANZapine [ZyPREXA] 10 mg PO DAILY@1900 risperiDONE [RisperDAL] See Taper PO DAILY@0600 Melatonin 5 mg PO HS PRN PRN Reason: Insomnia Discharge Medication List Nortrel 7 1 tab PO AC-SUPPER 01/10/22 [History] LORazepam [Ativan] 0.5 mg PO BID PRN 02/17/22 [History] Cholecalciferol [Vitamin D3 (125 Mcg = 5000 Iu)] 125 mcg PO DAILY 02/22/22 [History] Magnesium Carb,Citrate,Oxide [Magnesium Complex] 300 mg PO DAILY 02/22/22 [History] Pyridoxine HCl (Vitamin B6) [Vitamin B-6] 100 mg PO DAILY 02/22/22 [History] Divalproex [Depakote] 500 mg PO BID 30 Days tablet 03/01/22 [Rx] Melatonin 5 mg PO HS PRN 30 Days tablet 03/01/22 [Rx] OLANZapine [ZyPREXA] 5 mg PO DAILY 30 Days tab 03/01/22 [Rx] OLANZapine [ZyPREXA] 15 mg PO DAILY@1900 30 Days tab 03/01/22 [Rx] Follow up Appointment(s)/Referral(s): [facility] [Outside] - 03/02/22 2:00 pm (03/02 @ 14:[address] Felipe 03/07 @ 14:1430 with Neeta Arroyo ) Ruben George MD [Primary Care Provider] - 1-2 days Patient Instructions/Handouts: Hyponatremia (DC), Depression (DC), Anxiety (GEN), Psychotic Disorder (DC) Activity/Diet/Wound Care/Special Instructions: Activity and diet as tolerated. Avoid the use of street drugs and alcohol. Take all medications as prescribed. When you are in need of refills on your medications please contact your medical provider and/or outpatient psychiatrist to have this done. Please go to scheduled outpatient appointment for aftercare treatment. If symptoms return or become worse, call the crisis line at and/or go to the nearest emergency room for evaluation Discharge Disposition: HOME SELF-CARE
== END 2022-03-01 11:35 | disposition home or self-care (01) | DRG 885 ==
LOC: EC 09:35 → 3MHU 13:45
PROVIDERS: ADMIT Psychiatry & Neurology Psychiatry; ATTEND Psychiatry & Neurology Psychiatry
DX: F25.1 Schizoaffective disorder, depressive type (principal); R45.851 Suicidal ideations; F43.23 Adjustment disorder with mixed anxiety and depressed mood; Z79.899 Other long term (current) drug therapy; Z91.83 Wandering in diseases classified elsewhere; Z20.822 Contact with and (suspected) exposure to COVID-19
CPT/HCPCS: 80053; 80061; 80306; 82075; 85025; 87635; 99285

== ENCOUNTER → 2022-06-30 | Outpatient (CLI) | payer OTHER ==
[2022-06-30 16:09] LABS: Basophils % (A) 1 %; Eosinophils % (A) 1 %; HCT 42.5 % (34.0-46.0); HGB 13.4 gm/dL (11.4-16.0); Lymphocytes # (A) 1.4 k/uL (1.0-4.8); Lymphocytes % (A) 55 %; MCH 30.8 pg (25.0-35.0); MCHC 31.4 g/dL (31.0-37.0); Mean Platelet Volume 7.7; Monocytes # (A) 0.2 k/uL (0-1.0); Monocytes % (A) 9 %; Neutrophils % (A) 30 %; Platelet Count 142 k/uL (150-450); RBC 4.34 m/uL (3.80-5.40); RDW 12.7 % (11.5-15.5); WBC 2.5 k/uL (3.8-10.6)
[2022-06-30 16:19] LABS: Neutrophils # (A) 0.7 k/uL (1.3-7.7)
== END | disposition home or self-care (01) ==
LOC: LABWHC1 15:07
PROVIDERS: ATTEND Family Medicine
DX: B89 Unspecified parasitic disease (principal)
CPT/HCPCS: 36415; 85025

== ENCOUNTER → 2023-07-05 | Outpatient (CLI) | payer OTHER | END | disposition home or self-care (01) | LOC: LABWHC1 08:35 | PROVIDERS: ATTEND Registered Nurse | DX: Z51.81 Encounter for therapeutic drug level monitoring (principal); Z79.899 Other long term (current) drug therapy | CPT/HCPCS: 36415; 80159; 80346 ==